=== PATIENT | female | born 1990 | race Hispanic/Latino ===

== ENCOUNTER 2016-12-25 20:42 | Emergency (ER) | payer SELFPAY ==
[2016-12-25 21:07] LABS: Bacteria,Urine 1+ /HPF (Negative); Bilirubin,Urine NEG (Negative); Blood,Urine NEG (Negative); Ketones,Urine 80 mg/dL (Negative); Leukocyte Esterase,Urine NEG (Negative); Mucus,Urine 3+ /HPF; Nitrite,Urine NEG (Negative); Urobilinogen,Urine < 2.0 mg/dL (<2.0)
[2016-12-25 21:23] LABS: Hematocrit 41.2 % (30.3-42.9); Hemoglobin 14.2 gm/dl (10.1-14.3); Mean Corpuscular HGB Conc 34 % (30-34); Mean Corpuscular Hemoglobin 29 pg (28-32); Mean Corpuscular Volume 86 fl (79-97); Platelet Count 349 K/mm3 (140-440); Red Blood Count 4.82 M/mm3 (3.65-5.03); Red Cell Distribution Width 12.5 % (13.2-15.2); White Blood Count 21.1 K/mm3 (4.5-11.0)
[2016-12-25 21:45] LABS: Alanine Aminotransferase 13 units/L (7-56); Albumin 4.8 g/dL (3.9-5); Albumin/Globulin Ratio 1.7 %; Alkaline Phosphatase 61 units/L (35-129); Anion Gap 30 mmol/L; Blood Urea Nitrogen 17 mg/dL (7-17); Calcium 9.7 mg/dL (8.4-10.2); Carbon Dioxide 16 mmol/L (22-30); Chloride 100.3 mmol/L (98-107); Glucose 92 mg/dL (65-100); Lipase 21 units/L (13-60); Potassium 4.2 mmol/L (3.6-5.0); Sodium 142 mmol/L (137-145); Total Protein 7.7 g/dL (6.3-8.2)
[2016-12-25 21:50] LABS: Blastocytes % (Manual) 0 %; Eosinophils % (Manual) 0 % (0.0-4.3)
[2016-12-25 21:51] LABS: Diff Status Complete; RBC Morphology Normal
[2016-12-25] MEDS ORDERED: ZOFRAN ONE (23:00)
[2016-12-25] MEDS ORDERED: NACL 0.9% 1000 ML 1,000 ML ONE (23:00)
[2016-12-25] MEDS ORDERED: ZOFRAN IV ONE (23:19)
[2016-12-25] MEDS ORDERED: NACL 0.9% 1000 ML 1,000 ML IV ONE (23:19)
[2016-12-26] MEDS ORDERED: PHENERGAN PO ONE (01:36)
--- NOTE | 2016-12-26 01:37 | Emergency Department Report ---
HPI - General Chief Complaint: Abdominal Pain Time Seen by Provider: 12/26/16 00:58 - HPI HPI: 26-year-old female coming with nausea, vomiting but no urinary symptoms, no diarrhea, no pain. Patient has not taking any medication at home for his symptoms. She denies any exacerbating factors. She denies any alleviating factors. She denies any recent travel, or unusual foods. She denies any sick contacts. she states she had some abdominal discomfort earlier, but now feels fine. MD Complaint: nausea,vomiting ED Past Medical Hx - Past Medical History Previous Medical History?: No - Surgical History Past Surgical History?: No - Family History Family history: hypertension - Social History Smoking Status: Current Every Day Smoker Substance Use Type: None - Medications Home Medications: Home Medications Medication Instructions Recorded Confirmed Last Taken Type Ciprofloxacin HCl [Ciprofloxacin 500 mg PO Q12H #14 tab 12/26/16 Unknown Rx TAB] Promethazine [Phenergan TAB] 25 mg PO Q8HR PRN #12 tablet 12/26/16 Unknown Rx ED Review of Systems ROS: Stated complaint: DEHYDRATION Other details as noted in HPI Comment: All other systems reviewed and negative Gastrointestinal: nausea, vomiting Musculoskeletal: as per HPI Neurological: as per HPI Physical Exam - Physical Exam Vital Signs: Vital Signs 12/25/16 12/25/16 12/25/16 20:49 23:10 23:16 Temperature 98.0 F Pulse Rate 92 H Respiratory 19 18 Rate Blood Pressure 107/60 O2 Sat by Pulse 100 100 100 Oximetry Physical Exam: Physical Exam: - General Limitations: No Limitations General appearance: alert, in no apparent distress. - Head Head exam: Present: atraumatic, normocephalic - Eye Eye exam: Present: normal appearance - ENT ENT exam: Present: mucous membranes moist - Neck Neck exam: Present: normal inspection - Respiratory Respiratory exam: Present: normal lung sounds bilaterally. Absent: respiratory distress - Cardiovascular Cardiovascular Exam: Present: normal rhythm, normal rate. Absent: systolic murmur, diastolic murmur, rubs, gallop - GI/Abdominal GI/Abdominal exam: Present: soft, normal bowel sounds - Extremities Exam Extremities exam: Present: normal inspection - Back Exam Back exam: Present: normal inspection - Neurological Exam Neurological exam: Present: alert, oriented X3 - Psychiatric Psychiatric exam: normal affect and mood - Skin Skin exam: Present: warm, dry, intact, normal color. Absent: rash ED Course Vital Signs 12/25/16 12/25/16 12/25/16 20:49 23:10 23:16 Temperature 98.0 F Pulse Rate 92 H Respiratory 19 18 Rate Blood Pressure 107/60 O2 Sat by Pulse 100 100 100 Oximetry - Reevaluation(s) Reevaluation #1: 12/26/16 01:[address] scan of the abdomen and she was advised of the risks of not getting this test and the possibility of ruling out any abdominal infections, pelvic infections. Patient states she feels much better once to go home and will come back if symptoms return. ED Medical Decision Making - Lab Data Result diagrams: 12/25/16 21:03 12/25/16 21:03 Critical care attestation.: If time is entered above; I have spent that time in minutes in the direct care of this critically ill patient, excluding procedure time. ED Disposition Clinical Impression: Abdominal pain Qualifiers: Abdominal location: generalized Qualified Code(s): R10.84 - Generalized abdominal pain Disposition: DC-01 TO HOME OR SELFCARE Is pt being admited?: No Does the pt Need Aspirin: No Condition: Stable Instructions: Abdominal Pain (ED) Prescriptions: Ciprofloxacin HCl [Ciprofloxacin TAB] 500 mg PO Q12H #14 tab Promethazine [Phenergan TAB] 25 mg PO Q8HR PRN #12 tablet PRN Reason: Vomiting Referrals: PRIMARY CARE, [Primary Care Provider] - 3-5 Days
[2016-12-26 01:56] VITALS: BP 88/51
== END 2016-12-26 02:29 | disposition home or self-care (01) ==
LOC: ED 20:42
DX: R10.84 Generalized abdominal pain (principal); F17.200 Nicotine dependence, unspecified, uncomplicated
CPT/HCPCS: 36415; 80053; 81001; 81025; 83690; 85007; 85025; 96361; 96374; 99283; J2405; J7030; Q0169